=== PATIENT | male | born 1985 | race Caucasian/White ===

== ENCOUNTER 2018-06-12 09:08 | Emergency (ER) | payer SELFPAY ==
[2018-06-12] MEDS ORDERED: NALOXONE HCL 2 MG/2 ML SYR IVP ONE (09:10)
[2018-06-12] MEDS ORDERED: ONDANSETRON 4 MG/2 ML VIAL IVP ONE ×2 (09:10→09:44)
--- NOTE | 2018-06-12 09:14 | EDPHY ---
General Time Seen by Provider: 06/12/18 09:08 Narrative: CHIEF COMPLAINT: Unresponsive HISTORY OF PRESENT ILLNESS: Patient arrives to the front door this emergency department by friends, and he was found to be unresponsive. He was immediately taken back to a resuscitation room. He was exhibiting appy breathing but had pulses symmetrically. Unable to obtain any history from the patient as he was unresponsive. Pupils were pinpoint, thus we assumed opiate overdose. No other information obtainable from this unresponsive patient. REVIEW OF SYSTEMS: 10 systems were reviewed and negative with the exception of the elements mentioned in the history of present illness. PCP: Unknown SPECIALISTS: Unknown PAST MEDICAL HISTORY: Unknown PAST SURGICAL HISTORY: Unknown SOCIAL HISTORY: Unknown FAMILY HISTORY: Unknown EXAMINATION: General Appearance: Unresponsive. Apneic breathing Head: normocephalic, atraumatic Eyes: Pupils are equal but pinpoint at 2 mm. ENT, Mouth: Mucous membranes moist. Gag reflex in place. Neck: Normal inspection, supple, non-tender. Midline trachea Respiratory: Mild rhonchi. Cardiovascular: Regular rate and rhythm. No murmur Gastrointestinal: Abdomen is soft and nontender Back: non-tender, no bony abnormalities Neurological: Obtunded initially. Following Narcan repeat examination reveals alert to person and place. Disoriented to time. He is following commands appropriately. Strength is symmetric in the extremities. Skin: Warm and dry, no rash Extremities: Nontender, no pedal edema Psychiatric: Mood and affect normal DIFFERENTIAL DIAGNOSES: Including but not limited to heroin overdose, opiate overdose, opiate dependency MDM: 9:10 a.m. Suspected acute opiate overdose with significant improvement in his mentation after 1 dose of Narcan. Patient is currently awake. He is moving spontaneously. Vital signs are within normal limits with permissible tachycardia. He is afebrile. He is 100% oxygenation on non-rebreather. Pressure is 150/60. He received 2 mg of IV Narcan due to unresponsive state after being dropped off in this emergency department. He immediately responded to this. No vomiting. No risk of aspiration. I will discuss with attending physician so that he may assume care the patient. 9:30 a.m. Patient re-evaluated. He remains awake minimal somnolence. Continue to monitor. On full laboratory monitor. No vomiting but he has nausea 9:50 a.m. Patient re-evaluated. He is somewhat somnolent but opens his eyes spontaneously and is managing his airway with no difficulty. Nausea but no vomiting. Vital signs within normal limits. 10:20 a.m. Patient re-evaluated. He is less somnolent. He states "I feel like shit," but he denies any chest pain. He is asking to stay longer. I do feel it is reasonable to monitor for another 0.5 hr as he is mildly somnolent. leasing manager will be consulted as well. 11:00 a.m. Patient continues to improve. He is no longer somnolent. He states that he does not feel well, which I do attribute to the Narcan reversal of his heroin. His vital signs are within normal limits. He is ambulatory no difficulty. Case management has evaluated him and provided outpatient resources. She has even offered to have evaluated here for his heroin dependency. He has declined. He will be discharged home with prescription for Narcan. We discussed ED precautions. His significant other is at bedside and will drive him home. SUPERVISION: Patient was evaluated and examined in conjunction with my secondary supervising physician as documented. We have both examined the patient. CONSULTATION: Case management (Jorge Dunn) Medical Decision Making: Independent physician evaluation: I evaluated and participated in the management of the patient. I also evaluated the patient independently. My co-signature indicates that I have reviewed this chart and I agree with the findings and plan of care as documented. My personal H&P findings include: The patient presented to the ED with a respiratory arrest after injecting IV heroin. History and physical is unobtainable. The patient was brought to the emergency department by his girlfriend. Physical exam: General Appearance: Minimal respirations, cyanotic Eyes: Pupils equal and round no pallor or injection ENT, Mouth: Mucous membranes moist Respiratory: There are no retractions, lungs are clear to auscultation Cardiovascular: Regular rate and rhythm Gastrointestinal: Abdomen is soft and nontender, no masses, bowel sounds normal Neurological: Withdrawals to pain all 4 extremities Skin: Warm and dry, no rashes Musculoskeletal: Neck is supple nontender Extremities: symmetrical, full range of motion Psychiatric: Patient is oriented X 3, there is no agitation ED course: The patient presents to the ED with narcotic overdose. The patient was noted to be hypoxemic and with respiratory depression. This was treated with IV Narcan with immediate improvement. The patient was placed on a laboratory monitor. He received supplemental oxygen. The patient continued to be monitored in the emergency department for several hours without additional respiratory depression. The patient was seen by case management and offered resources including [facility]. The patient has stated that he will not use heroin again now that he is overdosed. The patient was also given a prescription for a Narcan nasal inhaler. He has been given resources aware this is dispensed in [place]. The patient was observed for prolonged period of time without recurrent hypoxemia or respiratory depression. He is discharged from the emergency department in stable condition. (Ketan Pate) - Objective Vital Signs: Initial Vital Signs Temperature (C) 97.5 F 06/12/18 09:29 Heart Rate 92 06/12/18 09:29 Respiratory Rate 14 06/12/18 09:29 Blood Pressure 134/85 H 06/12/18 09:29 O2 Sat (%) 96 06/12/18 09:29 O2 Delivery Mode Room Air O2 (L/minute) 0.5 Allergies/Adverse Reactions: No Known Allergies Allergy (Unverified 06/12/18 09:32) Home Medications: Medication Instructions Recorded Naloxone HCl [Narcan] 4 mg NS ONCE PRN #1 spray 06/12/18 Medications Given: Discontinued Medications Sodium Chloride (Ns) 1,000 mls @ 0 mls/hr IV EDNOW ONE; Wide Open PRN Reason: Protocol Stop: 06/12/18 09:43 Last Admin: 06/12/18 09:48 Dose: 1,000 mls Naloxone HCl (Naloxone Hcl) 2 mg IVP PRN ONE Stop: 06/12/18 09:11 Last Admin: 06/12/18 09:43 Dose: 2 mg Ondansetron HCl (Zofran) 4 mg IVP EDNOW ONE Stop: 06/12/18 09:11 Last Admin: 06/12/18 09:43 Dose: 4 mg Ondansetron HCl (Zofran) 4 mg IVP EDNOW ONE Stop: 06/12/18 09:45 Last Admin: 06/12/18 09:47 Dose: 4 mg Departure - Departure Disposition: Home, Routine, Self-Care Clinical Impression: Accidental heroin overdose Qualifiers: Encounter type: initial encounter Qualified Code(s): T40.1X1A - Poisoning by heroin, accidental (unintentional), initial encounter Opiate dependence Qualifiers: Substance use status: with unspecified opioid-induced disorder Qualified Code(s ): F11.29 - Opioid dependence with unspecified opioid-induced disorder Condition: Good Instructions: Narcotic Abuse (ED), Opioid Dependence (ED), Opioid Withdrawal ( ED) Additional Instructions: 1. [facility] to [facility] 2. Resources have been provided to you by our disease case manager 3. ED precautions as discussed Referrals: [facility],. [Clinic] - As per Instructions [facility],. [Clinic] - As per Instructions Joanne Garza MD [Medical Doctor] - As per Instructions Prescriptions: Naloxone HCl [Narcan] 4 mg NS ONCE PRN #1 spray PRN Reason: for overdose
[2018-06-12] MEDS ORDERED: NS 1,000 ML IV ONE (09:42)
[2018-06-12 11:53] VITALS: BP 118/52
--- NOTE | 2018-06-12 18:29 | ASMTCMCOM ---
CM Note CM Note Notes: Pt presented to the ED through triage and was found to be unresponsive. Pt was given Narcan and became awake and alert. 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 Spoke w/pt about his heroin use and resources for quitting; pt states "I'm done with this sh*t, I'm done. I have kids." Pt states he is not interested in any follow-up resources, treatment options or even [facility] as he says "I'm not sick, I don't need. I'm done with it, I don't need help." Offered to have [facility] Peer Abseiling Instructor Segundo Nakia come and speak to him while he is in the ED or to follow-up w/him and pt declined. Pt;s girlfriend is at bedside and she took the provided resource lists and info. [facility] also [email or web address]: 'Legal Syringe Access' and 'Overdose Reversal' Programs. Pt was also provided a Rxn for Narcan intranasal spray. Pt continued to decline any and all other discussion or resources. CM available for further assistance if needed. Date Signed: 06/12/2018 06:28 PM Electronically Signed By:Kelly Perez RN
== END 2018-06-12 11:45 | disposition home or self-care (01) ==
DX: T40.1X1A Poisoning by heroin, accidental (unintentional), initial encounter (principal); F11.29 Opioid dependence with unspecified opioid-induced disorder; E86.9 Volume depletion, unspecified
CPT/HCPCS: 96374; J2405